=== PATIENT | male | born 1975 | race Two or more races ===

== ENCOUNTER 2017-02-14 15:04 | Emergency (ER) | payer SELFPAY ==
[~2017-02-14] VITALS: Ht 165.1 cm; Wt 70.0 kg
[~2017-02-14 15:04] MED LIST: NORCO 5-325 TA1 EACH PO; NORCO 5/325 TAB1 TAB PO; PEN-VEE K500 MG PO; PENICILLIN V P500 M1 PO; PREDNISONE20 M1 PO; VENTOLIN HFA18 G2 PO; WAL-PROFEN200 M1 PO
== END 2017-02-14 15:48 ==
LOC: EDMED 15:04
DX: J45.909 Unspecified asthma, uncomplicated (principal); M41.9 Scoliosis, unspecified; F17.200 Nicotine dependence, unspecified, uncomplicated; Z79.51 Long term (current) use of inhaled steroids